=== PATIENT | male | born 1970 | race Caucasian/White ===

== ENCOUNTER 2018-03-27 11:26 | Emergency (ER) | payer OTHER ==
[2018-03-27] MEDS: METOCLOPRAMIDE 10 MG TAB PO (12:45)
== END 2018-03-27 14:20 | disposition home or self-care (01) ==
LOC: M ED 11:26
DX: S06.9X9A Unspecified intracranial injury with loss of consciousness of unspecified duration, initial encounter (principal); S40.012A Contusion of left shoulder, initial encounter; X58.XXXA Exposure to other specified factors, initial encounter; Y92.89 Other specified places as the place of occurrence of the external cause; R11.0 Nausea; R51 Headache; K21.9 Gastro-esophageal reflux disease without esophagitis; D56.9 Thalassemia, unspecified; Z79.899 Other long term (current) drug therapy; Z88.5 Allergy status to narcotic agent; Z88.1 Allergy status to other antibiotic agents
CPT/HCPCS: 73030